=== PATIENT | male | born 1940 | race Caucasian/White ===

== ENCOUNTER 2018-01-10 00:50 | Day surgery (SDC) | payer MEDICARE, BC ==
[~2018-01-10 00:50] MED LIST: ADAL40PEN; ADAL40PEN SC; AMIO200 PO; ASCO500 PO; ASPI81CH; ASPI81CH PO; ATEN25; AZAT50 PO; Aspir 8181 MG PO; BUDE.25; BUDE200IP INH; Bactrim Ds Tab1 EACH PO; CALCAVITD PO; CEPH500 PO; CHOL10002 PO; Cordarone200 MG PO; FURO20 PO; GEMF600; LANS30EC; LEVFLO500 PO; LOSA50 PO; MAGOXI400; MELO7.5; MERC50; MESA400ER; MULVITMIND PO; MULVITMINF; NEBI5 PO; OMEGA 3; OMEP40CA12 PO; PRAV20; PRAV20 PO; PRED10; PRED5; RAMI2.5; RANI150; RANI150 PO; ROFE25; TRAM50
== END 2018-01-10 11:32 | disposition home or self-care (01) ==
LOC: ATC 00:50
DX: K50.00 Crohn's disease of small intestine without complications (principal); Z87.891 Personal history of nicotine dependence; F45.8 Other somatoform disorders
CPT/HCPCS: 96413; 96415; J1745; J7050

== ENCOUNTER → 2018-04-01 | Outpatient (CLI) | payer MEDICARE, BC | END | disposition home or self-care (01) | LOC: PLD 11:25 → LAB SHORT 11:25 | DX: D48.5 Neoplasm of uncertain behavior of skin (principal) | CPT/HCPCS: 88305 ==

== ENCOUNTER 2018-09-27 03:56 | Emergency (ER) | payer MEDICARE, BC ==
[~2018-09-27] VITALS: Ht 172.7 cm; Wt 81.7 kg
[2018-09-27] MEDS ORDERED: LASIX (04:20)
[2018-09-27] MEDS ORDERED: AMIODARONE HCL100 MG PO (04:21)
[2018-09-27 04:32] LABS: BASOPHILS ABSOLUTE AUTO 0.04 K/mm3 (0.00-0.23); BASOPHILS PERCENT AUTO 1 % (0-2); EOSINOPHILS ABSOLUTE AUTO 0.04 K/mm3 (0.00-0.68); EOSINOPHILS PERCENT AUTO 1 % (0-6); Hemoglobin 13.5 g/dL (13.5-17.5); IMMATURE GRAN ABSOLUTE AUTO 0.04 K/mm3 (0.00-0.10); IMMATURE GRAN PERCENT AUTO 1 % (0-1); LYMPHOCYTES ABSOLUTE AUTO 1.53 K/mm3 (0.84-5.20); LYMPHOCYTES PERCENT AUTO 27 % (21-46); MONOCYTES ABSOLUTE AUTO 0.62 K/mm3 (0.16-1.47); MONOCYTES PERCENT AUTO 11 % (4-13); Mean Corpuscular HGB 31.6 pg (26.0-34.0); Mean Corpuscular HGB Conc 31.4 g/dL (31.5-36.5); Mean Corpuscular Volume 101 fL (80-100); NEUTROPHILS ABSOLUTE AUTO 3.39 K/mm3 (1.96-9.15); NEUTROPHILS PERCENT AUTO 60 % (41-73); RDW Coefficient Variation 13.2 % (11.7-14.2); RDW Standard Deviation 48.7 fL (35.1-46.3); Red Blood Cell Count 4.27 M/mm3 (4.30-5.90); White Blood Cell Count 5.66 K/mm3 (4.00-11.30)
[2018-09-27 04:35] LABS: Mean Platelet Volume 11.1 fL (9.1-12.4); Platelet Count 171 K/mm3 (150-400)
[2018-09-27 04:53] LABS: Troponin I <0.015 ng/mL (0.000-0.040)
[2018-09-27 04:54] LABS: Alanine Aminotransfer (ALT/SGP 23 U/L (12-78); Albumin, Blood 3.3 g/dL (3.4-5.0); Albumin/Globulin Ratio 0.9 (0.8-1.8); Alk Phos 66 U/L (50-136); Anion Gap 5 mmol/L (6-16); Aspartate Aminotrans (AST/SGOT 17 U/L (12-37); Bilirubin, Total 0.3 mg/dL (0.1-1.0); Blood Urea Nitrogen 21 mg/dL (8-24); Bun/Creatinine Ratio 18.3 (12.0-20.0); CO2, Blood 32 mmol/L (21-32); Calcium, Blood 8.5 mg/dL (8.5-10.1); Chloride, Blood 106 mmol/L (98-108); Creatinine, Blood 1.15 mg/dL (0.60-1.20); Globulin, Blood 3.7 g/dL (2.2-4.0); Glomerular Filtration Rate >60 (60-); Glucose, Blood 89 mg/dL (70-99); Potassium, Blood 3.9 mmol/L (3.5-5.5); Sodium, Blood 143 mmol/L (136-145)
[2018-09-27] MEDS ORDERED: Nitrostat0.4 MG SL (05:48)
== END 2018-09-27 06:42 | disposition home or self-care (01) ==
LOC: ER 03:56
PROVIDERS: Emergency Medicine
DX: R07.9 Chest pain, unspecified (principal); I10 Essential (primary) hypertension; I25.10 Atherosclerotic heart disease of native coronary artery without angina pectoris; Z88.6 Allergy status to analgesic agent; Z88.1 Allergy status to other antibiotic agents; Z79.899 Other long term (current) drug therapy; Z79.82 Long term (current) use of aspirin
CPT/HCPCS: 36415; 71046; 80053; 83880; 84484; 85025; 93005; 93010; 99285-25

== ENCOUNTER 2020-03-12 15:44 | Emergency (ER) | payer MEDICARE, BC, OTHER ==
[~2020-03-12] VITALS: Ht 180.3 cm; Wt 81.7 kg
[~2020-03-12 15:44] MED LIST changes: -AMIO200 PO; +AMIODARONE HCL100 MG PO; -ASPI81CH PO; +Amiodarone HCl200 MG PO; +Aspirin EC81 MG PO; -CHOL10002 PO; +LASIX; +Nitrostat0.4 MG SL; +VITAMIN D31000 UNI1 PO
[2020-03-12 16:25] LABS: Alanine Aminotransfer (ALT/SGP 18 U/L (12-78); Albumin, Blood 3.3 g/dL (3.4-5.0); Albumin/Globulin Ratio 0.8 (0.8-1.8); Alk Phos 75 U/L (50-136); Anion Gap 3 mmol/L (6-16); Aspartate Aminotrans (AST/SGOT 20 U/L (12-37); Bilirubin, Total 0.4 mg/dL (0.1-1.0); Blood Urea Nitrogen 20 mg/dL (8-24); Bun/Creatinine Ratio 16.1 (12.0-20.0); CO2, Blood 32 mmol/L (21-32); Calcium, Blood 8.6 mg/dL (8.5-10.1); Chloride, Blood 104 mmol/L (98-108); Creatinine, Blood 1.24 mg/dL (0.60-1.20); Glomerular Filtration Rate 60 (60-); Glucose, Blood 111 mg/dL (70-99); Sodium, Blood 139 mmol/L (136-145); Total Protein, Blood 7.3 g/dL (6.4-8.2); Troponin I <0.015 ng/mL (0.000-0.040)
[2020-03-12] MEDS ORDERED: FINA5 PO (16:28)
[2020-03-12 16:41] LABS: BASOPHILS ABSOLUTE AUTO 0.05 K/mm3 (0.00-0.23); BASOPHILS PERCENT AUTO 1 % (0-2); EOSINOPHILS ABSOLUTE AUTO 0.19 K/mm3 (0.00-0.68); EOSINOPHILS PERCENT AUTO 3 % (0-6); Hematocrit 42.6 % (37.0-53.0); Hemoglobin 13.8 g/dL (13.5-17.5); IMMATURE GRAN ABSOLUTE AUTO 0.03 K/mm3 (0.00-0.10); IMMATURE GRAN PERCENT AUTO 1 % (0-1); LYMPHOCYTES PERCENT AUTO 15 % (21-46); MONOCYTES ABSOLUTE AUTO 0.81 K/mm3 (0.16-1.47); MONOCYTES PERCENT AUTO 14 % (4-13); Mean Corpuscular HGB 31.4 pg (26.0-34.0); Mean Corpuscular HGB Conc 32.4 g/dL (31.5-36.5); Mean Corpuscular Volume 97 fL (80-100); Mean Platelet Volume 12.7 fL (9.1-12.4); NEUTROPHILS ABSOLUTE AUTO 4.03 K/mm3 (1.96-9.15); NEUTROPHILS PERCENT AUTO 67 % (41-73); Platelet Count 165 K/mm3 (150-400); RDW Coefficient Variation 13.3 % (11.7-14.2); RDW Standard Deviation 47.7 fL (35.1-46.3); White Blood Cell Count 6.01 K/mm3 (4.00-11.30)
[2020-03-12] MEDS ORDERED: Pravastatin Sod80 MG PO (16:48)
[2020-03-12] MEDS ORDERED: BUDESONIDE EC3 MG PO (16:48)
[2020-03-12] MEDS ORDERED: FUROSEMIDE20 MG PO (16:48)
[2020-03-12] MEDS ORDERED: NITR.4SL SL (16:49)
[2020-03-12] MEDS ORDERED: OMEP20ER PO (16:49)
== END 2020-03-12 17:05 | disposition home or self-care (01) ==
LOC: ER 15:44
PROVIDERS: Emergency Medicine
DX: I25.700 Atherosclerosis of coronary artery bypass graft(s), unspecified, with unstable angina pectoris (principal); I10 Essential (primary) hypertension; I25.2 Old myocardial infarction; Z88.6 Allergy status to analgesic agent; Z88.1 Allergy status to other antibiotic agents; Z79.82 Long term (current) use of aspirin; Z79.899 Other long term (current) drug therapy; Z87.891 Personal history of nicotine dependence
CPT/HCPCS: 71045; 80053; 83880; 84484; 85025; 93005; 93010; 99285-25

== ENCOUNTER 2020-10-14 12:11 | Emergency (ER) | payer MEDICARE, BC ==
[~2020-10-14] VITALS: Ht 172.7 cm; Wt 77.1 kg
[~2020-10-14 12:11] MED LIST changes: +BUDESONIDE EC3 MG PO; +FINA5 PO; +FUROSEMIDE20 MG PO; +NITR.4SL SL; +OMEP20ER PO; +Pravastatin Sod80 MG PO
[2020-10-14 12:53] LABS: BASOPHILS ABSOLUTE AUTO 0.04 K/mm3 (0.00-0.23); BASOPHILS PERCENT AUTO 1 % (0-2); EOSINOPHILS ABSOLUTE AUTO 0.02 K/mm3 (0.00-0.68); EOSINOPHILS PERCENT AUTO 0 % (0-6); Hematocrit 45.2 % (37.0-53.0); Hemoglobin 13.9 g/dL (13.5-17.5); IMMATURE GRAN ABSOLUTE AUTO 0.02 K/mm3 (0.00-0.10); IMMATURE GRAN PERCENT AUTO 0 % (0-1); LYMPHOCYTES ABSOLUTE AUTO 1.14 K/mm3 (0.84-5.20); LYMPHOCYTES PERCENT AUTO 17 % (21-46); MONOCYTES ABSOLUTE AUTO 0.71 K/mm3 (0.16-1.47); MONOCYTES PERCENT AUTO 10 % (4-13); Mean Corpuscular HGB 31.2 pg (26.0-34.0); Mean Corpuscular HGB Conc 30.8 g/dL (31.5-36.5); Mean Corpuscular Volume 101 fL (80-100); NEUTROPHILS ABSOLUTE AUTO 4.88 K/mm3 (1.96-9.15); NEUTROPHILS PERCENT AUTO 72 % (41-73); RDW Coefficient Variation 13.3 % (11.7-14.2); RDW Standard Deviation 50.5 fL (35.1-46.3); Red Blood Cell Count 4.46 M/mm3 (4.30-5.90); White Blood Cell Count 6.81 K/mm3 (4.00-11.30)
[2020-10-14 13:12] LABS: Mean Platelet Volume 12.7 fL (9.1-12.4); Platelet Count 123 K/mm3 (150-400)
[2020-10-14 13:17] LABS: Alanine Aminotransfer (ALT/SGP 22 U/L (12-78); Albumin, Blood 3.7 g/dL (3.4-5.0); Alk Phos 73 U/L (50-136); Anion Gap 4 mmol/L (6-16); Aspartate Aminotrans (AST/SGOT 19 U/L (12-37); Bilirubin, Total 0.5 mg/dL (0.1-1.0); Blood Urea Nitrogen 21 mg/dL (8-24); Bun/Creatinine Ratio 16.2 (12.0-20.0); CO2, Blood 32 mmol/L (21-32); Chloride, Blood 105 mmol/L (98-108); Globulin, Blood 3.8 g/dL (2.2-4.0); Glomerular Filtration Rate 57 (60-); Glucose, Blood 90 mg/dL (70-99); Potassium, Blood 4.3 mmol/L (3.5-5.5); Sodium, Blood 141 mmol/L (136-145); Total Protein, Blood 7.5 g/dL (6.4-8.2); Troponin I <0.015 ng/mL (0.000-0.040)
[2020-10-14] MEDS ORDERED: ALBU90OI INH (14:41)
[2020-10-14] MEDS ORDERED: Prednisone20 MG PO (14:41)
== END 2020-10-14 15:01 | disposition home or self-care (01) ==
LOC: ER 12:11
PROVIDERS: Emergency Medicine
DX: J44.9 Chronic obstructive pulmonary disease, unspecified (principal); Z79.899 Other long term (current) drug therapy; Z79.52 Long term (current) use of systemic steroids; Z79.82 Long term (current) use of aspirin
CPT/HCPCS: 36415; 71045; 80053; 83880; 84484; 85025; 93005; 93010; 94640; 99285-25

== ENCOUNTER → 2021-02-13 | Outpatient (CLI) | payer MEDICARE, BC ==
[~2021-02-13] MED LIST changes: +ALBU90OI INH; +Prednisone20 MG PO
== END | disposition home or self-care (01) ==
LOC: LAB EV 12:37 → LAB SHORT 12:37
DX: N45.1 Epididymitis (principal)
CPT/HCPCS: 87086

== ENCOUNTER → 2021-03-17 | Outpatient (CLI) | payer MEDICARE, BC ==
[2021-03-17 09:47] LABS: Bun/Creatinine Ratio 18.9 (12.0-20.0); Creatinine, Blood 1.64 mg/dL (0.60-1.20); Potassium, Blood 3.5 mmol/L (3.5-5.5)
== END ==
LOC: LAB SHORT 09:35
PROVIDERS: Physician Assistant
DX: N40.0 Benign prostatic hyperplasia without lower urinary tract symptoms (principal); R30.9 Painful micturition, unspecified
CPT/HCPCS: 80048; 87086

== ENCOUNTER 2021-05-25 16:42 | Emergency (ER) | payer MEDICARE, BC ==
[~2021-05-25] VITALS: Ht 172.7 cm; Wt 77.1 kg
[2021-05-25 17:57] LABS: BASOPHILS ABSOLUTE AUTO 0.04 K/mm3 (0.00-0.23); BASOPHILS PERCENT AUTO 1 % (0-2); EOSINOPHILS ABSOLUTE AUTO 0.05 K/mm3 (0.00-0.68); EOSINOPHILS PERCENT AUTO 1 % (0-6); Hematocrit 36.2 % (37.0-53.0); Hemoglobin 11.8 g/dL (13.5-17.5); IMMATURE GRAN ABSOLUTE AUTO 0.05 K/mm3 (0.00-0.10); IMMATURE GRAN PERCENT AUTO 1 % (0-1); LYMPHOCYTES ABSOLUTE AUTO 0.77 K/mm3 (0.84-5.20); LYMPHOCYTES PERCENT AUTO 13 % (21-46); MONOCYTES ABSOLUTE AUTO 0.62 K/mm3 (0.16-1.47); MONOCYTES PERCENT AUTO 10 % (4-13); Mean Corpuscular HGB 32.9 pg (26.0-34.0); Mean Corpuscular HGB Conc 32.6 g/dL (31.5-36.5); Mean Corpuscular Volume 101 fL (80-100); Mean Platelet Volume 12.1 fL (9.1-12.4); NEUTROPHILS ABSOLUTE AUTO 4.64 K/mm3 (1.96-9.15); NEUTROPHILS PERCENT AUTO 75 % (41-73); Platelet Count 110 K/mm3 (150-400); RDW Coefficient Variation 13.3 % (11.7-14.2); Red Blood Cell Count 3.59 M/mm3 (4.30-5.90); White Blood Cell Count 6.17 K/mm3 (4.00-11.30)
[2021-05-25 18:32] LABS: Alanine Aminotransfer (ALT/SGP 30 U/L (12-78); Albumin, Blood 3.5 g/dL (3.4-5.0); Alk Phos 62 U/L (50-136); Anion Gap 4 mmol/L (6-16); Aspartate Aminotrans (AST/SGOT 22 U/L (12-37); Bilirubin, Total 0.4 mg/dL (0.1-1.0); Blood Urea Nitrogen 34 mg/dL (8-24); Bun/Creatinine Ratio 19.4 (12.0-20.0); CO2, Blood 32 mmol/L (21-32); Calcium, Blood 8.7 mg/dL (8.5-10.1); Chloride, Blood 101 mmol/L (98-108); Creatinine, Blood 1.75 mg/dL (0.60-1.20); Globulin, Blood 3.6 g/dL (2.2-4.0); Glomerular Filtration Rate 40 (60-); Glucose, Blood 128 mg/dL (70-99); Sodium, Blood 137 mmol/L (136-145); Total Protein, Blood 7.1 g/dL (6.4-8.2)
[2021-05-25 18:33] LABS: Troponin I <0.015 ng/mL (0.000-0.040)
== END 2021-05-26 00:30 | disposition home or self-care (01) ==
LOC: ER 16:42
PROVIDERS: Emergency Medicine
DX: R06.02 Shortness of breath (principal); R07.9 Chest pain, unspecified; R51.9 Headache, unspecified; R42 Dizziness and giddiness; I10 Essential (primary) hypertension; I25.10 Atherosclerotic heart disease of native coronary artery without angina pectoris; J44.9 Chronic obstructive pulmonary disease, unspecified; Z88.6 Allergy status to analgesic agent; Z88.1 Allergy status to other antibiotic agents; Z79.899 Other long term (current) drug therapy; Z87.891 Personal history of nicotine dependence
CPT/HCPCS: 36415; 71046; 71260; 80053; 83880; 84484; 85025; 85379; 93005; 93010; 99284-25; Q9967

== ENCOUNTER → 2021-07-27 | Outpatient (CLI) | payer MEDICARE, BC | END | disposition home or self-care (01) | LOC: LAB SHORT 17:00 → LAB 17:00 | DX: N41.1 Chronic prostatitis (principal) | CPT/HCPCS: 87086 ==

== ENCOUNTER 2021-09-01 07:45 | Day surgery (SDC) | payer MEDICARE, BC ==
[~2021-09-01] VITALS: Ht 170.2 cm; Wt 79.4 kg
[~2021-09-01 07:45] MED LIST changes: +BUDESONIDE EC3 M1 PO; -BUDESONIDE EC3 MG PO; +TAMS.4ER PO; +TORSE20 PO
[2021-09-01] MEDS ORDERED: ALBU90OI INH (08:31)
[2021-09-01] MEDS ORDERED: NEBI5 PO (08:32)
[2021-09-01] MEDS ORDERED: Nitroglycerin1 EAC1 TOP (08:34)
[2021-09-01 10:37] LABS: PCO2 Arterial 43.5 mmHg (35-45); PO2 Arterial 115 mmHg (80-100); pH Blood Arterial 7.42 (7.35-7.45)
--- NOTE | 2021-09-01 11:36 | NUR ---
PT EATING LUNCH AND TOLERATING PO FLUIDS WITHOUT DIFFICULTY. VSS, CALL LIGHT IN REACH. PT DENIES DISCOMFORT OR NEEDS.
--- NOTE | 2021-09-01 12:01 | NUR ---
PT'S SPOUSE, LOGAN, CALLED AND UPDATED BY DR DONALDSON.
--- NOTE | 2021-09-01 12:33 | NUR ---
RIGHT FEMORAL SITE CONTINUES TO BE SOFT AND NON-TENDER. NO BLEEDING OR SWELLING NOTED. HEAD OF BED RAISED PER PT REQUEST DUE TO RIGHT HIP AND LOWER BACK PAIN, WHICH IS CHRONIC FOR HIM.
--- NOTE | 2021-09-01 14:30 | NUR ---
IV DC'D, CATH INTACT. PT AND SPOUSE VERBALIZED UNDERSTANDING OF DC INSTRUCTIONS AND FOLLOW UP INFO. PT OUT TO CAR VIA WHEELCHAIR. RIGHT FEMORAL SITE REMAINS SOFT AND NON-TENDER. NO BLEEDING OR SWELLING NOTED.
== END 2021-09-01 15:34 | disposition home or self-care (01) ==
LOC: MHTC 07:45
DX: I25.118 Atherosclerotic heart disease of native coronary artery with other forms of angina pectoris (principal); I25.718 Atherosclerosis of autologous vein coronary artery bypass graft(s) with other forms of angina pectoris; I25.82 Chronic total occlusion of coronary artery; I10 Essential (primary) hypertension; E78.5 Hyperlipidemia, unspecified; J45.909 Unspecified asthma, uncomplicated; I25.2 Old myocardial infarction; Z95.5 Presence of coronary angioplasty implant and graft
CPT/HCPCS: 82803; 93459; 99152; 99153; A9270; C1760; C1769; C1894; J0690; J1644; J2250; J2405; J3010; J7030; J7050; Q9967

== ENCOUNTER 2021-09-15 18:44 | Emergency (ER) | payer MEDICARE, BC ==
[~2021-09-15] VITALS: Ht 172.7 cm; Wt 77.1 kg
[~2021-09-15 18:44] MED LIST changes: +Nitroglycerin1 EAC1 TOP; +ONDA4ODT MM
[2021-09-15 19:34] LABS: BASOPHILS ABSOLUTE AUTO 0.03 K/mm3 (0.00-0.23); BASOPHILS PERCENT AUTO 0 % (0-2); EOSINOPHILS ABSOLUTE AUTO 0.01 K/mm3 (0.00-0.68); EOSINOPHILS PERCENT AUTO 0 % (0-6); Hematocrit 34.2 % (37.0-53.0); Hemoglobin 11.2 g/dL (13.5-17.5); IMMATURE GRAN ABSOLUTE AUTO 0.04 K/mm3 (0.00-0.10); IMMATURE GRAN PERCENT AUTO 0 % (0-1); LYMPHOCYTES ABSOLUTE AUTO 0.69 K/mm3 (0.84-5.20); LYMPHOCYTES PERCENT AUTO 7 % (21-46); MONOCYTES ABSOLUTE AUTO 1.14 K/mm3 (0.16-1.47); MONOCYTES PERCENT AUTO 12 % (4-13); Mean Corpuscular HGB 32.5 pg (26.0-34.0); Mean Corpuscular HGB Conc 32.7 g/dL (31.5-36.5); Mean Corpuscular Volume 99 fL (80-100); Mean Platelet Volume 10.7 fL (9.1-12.4); NEUTROPHILS ABSOLUTE AUTO 7.94 K/mm3 (1.96-9.15); NEUTROPHILS PERCENT AUTO 81 % (41-73); Platelet Count 131 K/mm3 (150-400); RDW Coefficient Variation 13.4 % (11.7-14.2); RDW Standard Deviation 49.2 fL (35.1-46.3); Red Blood Cell Count 3.45 M/mm3 (4.30-5.90); White Blood Cell Count 9.85 K/mm3 (4.00-11.30)
[2021-09-15 19:51] LABS: Albumin, Blood 2.8 g/dL (3.4-5.0); Albumin/Globulin Ratio 0.6 (0.8-1.8); Bun/Creatinine Ratio 11.3 (12.0-20.0); Calcium, Blood 8.8 mg/dL (8.5-10.1); Creatinine, Blood 1.77 mg/dL (0.60-1.20); Globulin, Blood 4.4 g/dL (2.2-4.0); Potassium, Blood 3.9 mmol/L (3.5-5.5); Total Protein, Blood 7.2 g/dL (6.4-8.2)
[2021-09-15 20:06] LABS: Source, Urine Clean Catch
[2021-09-15 20:09] LABS: Bilirubin, Urine Neg (Neg); Blood, Urine 2+ (Neg); Glucose Qualitative, Urine Neg (Neg); Ketones, Urine Neg (Neg); Leukocyte Esterase, Urine 1+ (Neg); Nitrite, Urine Neg (Neg); Protein, Urine 1+ (Neg); Urobilinogen, Urine NORM (Normal)
[2021-09-15 20:23] LABS: Appearance, Urine Clear (Clear); Color, Urine Yellow (P-Yellow)
[2021-09-15 20:24] LABS: Bacteria Many /hpf; Squamous Epithelial Cells Few /hpf (Few)
[2021-09-15 20:25] LABS: Red Blood Cells, Urine 0-2 /hpf (0-2); White Blood Cells, Urine 0-2 /hpf (0-5)
[2021-09-15] MEDS ORDERED: MYRBETRIQ50 MG PO (21:18)
== END 2021-09-16 00:12 | disposition home or self-care (01) ==
LOC: ER 18:44
PROVIDERS: Emergency Medicine
DX: R11.2 Nausea with vomiting, unspecified (principal); I10 Essential (primary) hypertension; I25.10 Atherosclerotic heart disease of native coronary artery without angina pectoris; I25.2 Old myocardial infarction; J44.9 Chronic obstructive pulmonary disease, unspecified; Z88.6 Allergy status to analgesic agent; Z88.8 Allergy status to other drugs, medicaments and biological substances; Z79.899 Other long term (current) drug therapy; Z79.82 Long term (current) use of aspirin
CPT/HCPCS: 36415; 80053; 81001; 83690; 85025; 87086; 96374; 99284-25; J2405

== ENCOUNTER 2021-11-02 08:32 | Day surgery (SDC) | payer MEDICARE, BC ==
[~2021-11-02] VITALS: Ht 172.7 cm; Wt 79.9 kg
[~2021-11-02 08:32] MED LIST changes: +MYRBETRIQ50 MG PO
--- NOTE | 2021-11-02 08:46 | NUR ---
11/02/21 0846 JOSE WEST TETRACAINE DROP INSTILLED AT 0845. PLEDGETT INSERTED AT 0846
--- NOTE | 2021-11-02 10:35 | NUR ---
11/02/21 1035 Karel Pham LATE ENTRY PT HEART RATE AT 48BPM. DR. YOST AWARE, NO FURTHER ORDERS GIVEN. PT DENIES ANY DIZZINESS OR FEELING LIGHTHEADED. BP WNL. PT STATED HE IS READY TO GO HOME.
== END 2021-11-02 10:31 | disposition home or self-care (01) ==
LOC: ORSCSDS 08:32
PROVIDERS: Ophthalmology
PROC: 08RJ3JZ Replacement of Right Lens with Synthetic Substitute, Percutaneous Approach (ICD-10-PCS; principal; 2021-11-02 09:00)
DX: H25.11 Age-related nuclear cataract, right eye (principal); I10 Essential (primary) hypertension; N18.9 Chronic kidney disease, unspecified; J44.9 Chronic obstructive pulmonary disease, unspecified; I25.10 Atherosclerotic heart disease of native coronary artery without angina pectoris; K21.9 Gastro-esophageal reflux disease without esophagitis; Z79.899 Other long term (current) drug therapy; Z87.891 Personal history of nicotine dependence
CPT/HCPCS: J2001; J2250; J3010; J3301; J7040; V2632

== ENCOUNTER 2022-10-30 20:14 | Emergency (ER) | payer MEDICARE, BC ==
[~2022-10-30] VITALS: Ht 172.7 cm; Wt 78.5 kg
[2022-10-30 20:59] LABS: BASOPHILS ABSOLUTE AUTO 0.03 K/mm3 (0.00-0.23); BASOPHILS PERCENT AUTO 1 % (0-2); EOSINOPHILS ABSOLUTE AUTO 0.14 K/mm3 (0.00-0.68); EOSINOPHILS PERCENT AUTO 2 % (0-6); Hematocrit 34.7 % (37.0-53.0); Hemoglobin 11.4 g/dL (13.5-17.5); IMMATURE GRAN PERCENT AUTO 2 % (0-1); LYMPHOCYTES ABSOLUTE AUTO 0.68 K/mm3 (0.84-5.20); LYMPHOCYTES PERCENT AUTO 10 % (21-46); MONOCYTES ABSOLUTE AUTO 0.98 K/mm3 (0.16-1.47); MONOCYTES PERCENT AUTO 15 % (4-13); Mean Corpuscular HGB 32.3 pg (26.0-34.0); Mean Corpuscular HGB Conc 32.9 g/dL (31.5-36.5); Mean Corpuscular Volume 98 fL (80-100); Mean Platelet Volume 9.7 fL (9.1-12.4); NEUTROPHILS ABSOLUTE AUTO 4.71 K/mm3 (1.96-9.15); NEUTROPHILS PERCENT AUTO 71 % (41-73); Platelet Count 196 K/mm3 (150-400); RDW Standard Deviation 50.4 fL (35.1-46.3); Red Blood Cell Count 3.53 M/mm3 (4.30-5.90); White Blood Cell Count 6.64 K/mm3 (4.00-11.30)
[2022-10-30 22:17] LABS: Albumin, Blood 2.6 g/dL (3.4-5.0); Albumin/Globulin Ratio 0.7 (0.8-1.8); Bilirubin, Total 0.6 mg/dL (0.1-1.0); Bun/Creatinine Ratio 13.6 (12.0-20.0); Calcium, Blood 8.1 mg/dL (8.5-10.1); Creatinine, Blood 1.4 mg/dL (0.60-1.20); Globulin, Blood 3.6 g/dL (2.2-4.0); Magnesium, Blood 2.2 mg/dL (1.6-2.4); Potassium, Blood 3.5 mmol/L (3.5-5.5); Total Protein, Blood 6.2 g/dL (6.4-8.2)
[2022-10-30 22:28] LABS: Influenza A, PCR NEGATIVE (NEGATIVE); Influenza B, PCR NEGATIVE (NEGATIVE); Resp Syncytial Virus, PCR NEGATIVE (NEGATIVE); SARS-Cov-2 (COVID-19) PCR, MMC NEGATIVE (NEGATIVE)
[2022-10-30] MEDS ORDERED: ONDA4ODT MM (22:57)
== END 2022-10-30 23:08 | disposition home or self-care (01) ==
LOC: ER 20:14
PROVIDERS: Student in an Organized Health Care Education/Training Program
DX: R11.2 Nausea with vomiting, unspecified (principal); R07.9 Chest pain, unspecified; R21 Rash and other nonspecific skin eruption; I25.10 Atherosclerotic heart disease of native coronary artery without angina pectoris; J44.9 Chronic obstructive pulmonary disease, unspecified; I10 Essential (primary) hypertension; Z87.891 Personal history of nicotine dependence; Z20.822 Contact with and (suspected) exposure to COVID-19; Z88.8 Allergy status to other drugs, medicaments and biological substances; Z88.6 Allergy status to analgesic agent; Z79.899 Other long term (current) drug therapy; Z79.82 Long term (current) use of aspirin
CPT/HCPCS: 0241U; 36415; 71045; 80053; 83735; 84484; 85025; 93005; 93010; A9270; J0780; J3010

== ENCOUNTER 2025-01-17 09:35 | Emergency (ER) | payer MEDICARE, BC ==
[~2025-01-17] VITALS: Ht 172.7 cm; Wt 74.8 kg
[2025-01-17 10:05] VITALS: BP 114/75
[2025-01-17] MEDS ORDERED: FentaNYL Citrate 50 MCG/ML 2 ML Injection IV ONE (10:30)
[2025-01-17] MEDS ORDERED: Lactated Ringer's 1,000 ML IV ONE ×2 (10:30→10:40)
[2025-01-17] MEDS ORDERED: Ondansetron HCl 2 MG / ML 2ML Vial IV ONE (10:30)
[2025-01-17 10:43] LABS: BASOPHILS ABSOLUTE AUTO 0.01 K/mm3 (0.00-0.23); BASOPHILS PERCENT AUTO 0 % (0-2); EOSINOPHILS PERCENT AUTO 0 % (0-6); Hematocrit 39.6 % (37.0-53.0); Hemoglobin 12.8 g/dL (13.5-17.5); IMMATURE GRAN ABSOLUTE AUTO 0.04 K/mm3 (0.00-0.10); IMMATURE GRAN PERCENT AUTO 1 % (0-1); LYMPHOCYTES ABSOLUTE AUTO 0.68 K/mm3 (0.84-5.20); LYMPHOCYTES PERCENT AUTO 20 % (21-46); MONOCYTES ABSOLUTE AUTO 0.42 K/mm3 (0.16-1.47); MONOCYTES PERCENT AUTO 13 % (4-13); Mean Corpuscular HGB 32.3 pg (26.0-34.0); Mean Corpuscular HGB Conc 32.3 g/dL (31.5-36.5); Mean Corpuscular Volume 100 fL (80-100); Mean Platelet Volume 10.7 fL (9.1-12.4); NEUTROPHILS ABSOLUTE AUTO 2.21 K/mm3 (1.96-9.15); NEUTROPHILS PERCENT AUTO 66 % (41-73); Platelet Count 101 K/mm3 (150-400); RDW Coefficient Variation 13.7 % (11.7-14.2); RDW Standard Deviation 50.3 fL (35.1-46.3); Red Blood Cell Count 3.96 M/mm3 (4.30-5.90); White Blood Cell Count 3.36 K/mm3 (4.00-11.30)
[2025-01-17 11:03] LABS: Albumin, Blood 3.5 g/dL (3.4-5.0); Bilirubin, Total 0.2 mg/dL (0.1-1.0); Calcium, Blood 8.3 mg/dL (8.5-10.1); Creatinine, Blood 1.44 mg/dL (0.60-1.20); Globulin, Blood 3.5 g/dL (2.2-4.0); Potassium, Blood 3.3 mmol/L (3.5-5.5)
[2025-01-17 11:27] LABS: CORONAVIRUS COVID-19 AG Positive (NEGATIVE); INFLUENZA A AG Negative (NEGATIVE); INFLUENZA B AG Negative (NEGATIVE)
[2025-01-17] MEDS ORDERED: Acetaminophen 325 MG TABLET PO ONE (13:30)
== END 2025-01-17 13:51 | disposition home or self-care (01) ==
LOC: ER 09:35
PROVIDERS: Emergency Medicine
DX: R55 Syncope and collapse (principal); S51.812A Laceration without foreign body of left forearm, initial encounter; S16.1XXA Strain of muscle, fascia and tendon at neck level, initial encounter; W18.30XA Fall on same level, unspecified, initial encounter; U07.1 COVID-19; I10 Essential (primary) hypertension; Z79.899 Other long term (current) drug therapy; Z79.82 Long term (current) use of aspirin; Z79.620 Long term (current) use of immunosuppressive biologic; Z79.02 Long term (current) use of antithrombotics/antiplatelets
CPT/HCPCS: 70450; 72125; 80053; 84484; 85025; 87428-QW; 93005; 93010; 96361; 96374; 96375; 99284-25; A9270; J2405; J3010; J7120

== ENCOUNTER → 2025-02-16 | Outpatient (CLI) | payer MEDICARE, BC ==
[2025-02-19 20:01] LABS: CALPROTECTIN,FECAL 212 ug/g (<=49)
== END | disposition home or self-care (01) ==
LOC: LAB 17:47 → LAB SHORT 17:47
PROVIDERS: Family Medicine
DX: K50.90 Crohn's disease, unspecified, without complications (principal)
CPT/HCPCS: 83993

== ENCOUNTER 2025-02-24 11:10 | Day surgery (SDC) | payer MEDICARE, BC ==
[~2025-02-24] VITALS: Ht 172.7 cm; Wt 69.4 kg
[~2025-02-24 11:10] MED LIST changes: +Lactated Ringer's 1,000 ML IV ONE
[2025-02-24] MEDS ORDERED: propofoL 50 ML IV ONE (12:02)
[2025-02-24] MEDS ORDERED: Lactated Ringer's 1,000 ML IV ONE (12:16)
[2025-02-24 14:06] VITALS: BP 120/65
== END 2025-02-24 14:00 | disposition home or self-care (01) ==
LOC: ORSCSDS 11:10
DX: K50.90 Crohn's disease, unspecified, without complications (principal); D12.0 Benign neoplasm of cecum; D12.3 Benign neoplasm of transverse colon; K57.30 Diverticulosis of large intestine without perforation or abscess without bleeding; K64.4 Residual hemorrhoidal skin tags; Z90.49 Acquired absence of other specified parts of digestive tract; I25.10 Atherosclerotic heart disease of native coronary artery without angina pectoris; Z95.1 Presence of aortocoronary bypass graft; I12.9 Hypertensive chronic kidney disease with stage 1 through stage 4 chronic kidney disease, or unspecified chronic kidney disease; K21.9 Gastro-esophageal reflux disease without esophagitis; E78.5 Hyperlipidemia, unspecified; N18.31 Chronic kidney disease, stage 3a; Z87.891 Personal history of nicotine dependence; Z79.82 Long term (current) use of aspirin; Z79.899 Other long term (current) drug therapy
CPT/HCPCS: 82947; 88305; J2704; J7120

== ENCOUNTER → 2025-04-26 | Outpatient (CLI) | payer MEDICARE, BC ==
[~2025-04-26] MED LIST changes: -Lactated Ringer's 1,000 ML IV ONE
== END ==
LOC: LAB SHORT 14:32 → LAB 14:32
DX: L08.0 Pyoderma (principal)
CPT/HCPCS: 87070; 87075; 87205